=== PATIENT | male | born 2005 | race Hispanic/Latino ===

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

== ENCOUNTER 2025-05-11 03:35 | Emergency (ER) | payer SELFPAY | END 2025-05-11 03:46 | LOC: ERS 03:35 | DX: Z02.89 Encounter for other administrative examinations (principal) | CPT/HCPCS: 99283 ==